=== PATIENT | male | born 1950 | race Caucasian/White ===

== ENCOUNTER 2022-08-06 00:21 | Day surgery (SDC) | payer MEDICARE, SELFPAY ==
[2022-07-28 10:41] VITALS: BMI 34.7
--- NOTE | 2022-08-05 15:58 | PM.HPGS ---
History of Present Illness History of Present Illness Consent: Risks, benefits, and alternatives have been discussed and questions answered. Patient agrees to proceed with procedure. Chief complaint: Brunner's Esophagus, hx of colon polyps Narrative: iMke Correa is a 72 year old male with a history of Brunner's esophagus due for surveillance. He continues to take Protonix daily. He also has a history of colon polyps. Review of Systems Review of Systems: All systems reviewed & are unremarkable except as noted in HPI and below PMFSH Social History Social History Smoking status: Former smoker Tobacco type: cigarettes Alcohol intake: current Alcohol use details: occasionally Substance use: never Substance use type: does not use Living arrangements: with family Spiritual care concerns: No Meds Home Medications and Allergies Home Medications Medication Instructions Recorded Confirmed Type acyclovir 400 mg tablet 40 mg PO BID 07/28/22 07/28/22 History clopidogrel 75 mg tablet 75 mg PO DAILY 07/28/22 08/06/22 History pantoprazole 40 mg tablet,delayed 40 mg PO DAILY 07/28/22 History release rosuvastatin 40 mg tablet 40 mg PO DAILY 07/28/22 07/28/22 History valsartan 160 mg tablet 16 mg PO DAILY 07/28/22 07/28/22 History Allergies Allergy/AdvReac Type Severity Reaction Status Date / Time No Known Allergies Allergy Verified 08/06/22 07:44 Exam Const: General: alert Orientation/consciousness: patient oriented x3 Resp: Auscultation: clear to auscultation bilaterally Cardio: Rhythm: regular rhythm GI: GI Palp: Yes Soft to palpation and No Tenderness to palpation present (GI) Neuro: General: patient oriented x3 Assessment and Plan Assessment and plan (1) Brunner's esophagus: Code(s): K22.70 - Brunner's esophagus without dysplasia Status: Acute Assessment and Plan: EGD with possible biopsy or dilatation or cautery. (2) Colon cancer screening: Code(s): Z12.11 - Encounter for screening for malignant neoplasm of colon Status: Acute Assessment and Plan: Colonoscopy with possible biopsy or polypectomy or cautery or injection of substances.
[2022-08-06 07:45] VITALS: BP 155/87; PULSE 72; RESP 16; TEMP 36.2; O2SAT 99
[2022-08-06] MEDS: LACTATED RINGERS 1,000 ML 150 ML IV CONT (07:55)
--- NOTE | 2022-08-06 08:12 | WPDANESEPPF ---
Anes - Initial Pre Proc Eval Procedure: Operation Date: 08/06/22 09:00 Proposed Procedures p Esophagogastroduodenoscopy & Colonoscopy - Terrell Carcamo MD Date/Time: 08/06/22 08:12 Surgeon: Terrell Carcamo MD Pre Op Diagnosis: Brunner's Esophagus, hx of colon polyps Patient Data Age: 72 Gender: M Height: 1.85 m Weight: 112.6 kg Last Vital Signs Temp 97.1 F L 08/06/22 07:45 Pulse 72 08/06/22 07:45 Resp 16 08/06/22 07:45 BP 155/87 H 08/06/22 07:45 Pulse Ox 99 08/06/22 07:45 O2 Del Method Room Air 08/06/22 07:45 Allergies Allergy/AdvReac Type Severity Reaction Status Date / Time No Known Allergies Allergy Verified 08/06/22 07:44 Home Medications Medication Instructions Recorded Confirmed Type acyclovir 400 mg tablet 40 mg PO BID 07/28/22 07/28/22 History clopidogrel 75 mg tablet 75 mg PO DAILY 07/28/22 08/06/22 History pantoprazole 40 mg tablet,delayed 40 mg PO DAILY 07/28/22 History release rosuvastatin 40 mg tablet 40 mg PO DAILY 07/28/22 07/28/22 History valsartan 160 mg tablet 16 mg PO DAILY 07/28/22 07/28/22 History Patient hx anesthesia problems: none Family hx anesthesia problems: none Results Review: All pre-operative results and documents have been reviewed as part of the pre-operative evaluation. [facility] Social History Social History Smoking status: Former smoker Tobacco type: cigarettes Alcohol intake: current Alcohol use details: occasionally Substance use: never Substance use type: does not use Living arrangements: with family Spiritual care concerns: No Anes - Eval Final PreProcedure Day of Procedure 08/06/22 08:12 Patient weight: obese Heart: regular rate and rhythm Lungs: clear to auscultation Airway: Mallampati scale class II Neurological: alert and oriented Last oral intake: >/= 8 hours ASA classification: III Emergent: no Anesthetic plan: proceed Anesthesia type and monitoring: general GIVS and standard monitoring Results Review: All pre-operative results and documents have been reviewed as part of the pre-operative evaluation. Informed Consent: The patient's anesthetic plan and its attendant risks and benefits were discussed with the patient/family/POA. Questions were solicited and answers provided to the satisfaction of the patient/family/POA.
[2022-08-06] MEDS: SIMETHICONE ORAL SUSPENSION 20 MG/0.3 ML 30 ML BOTTLE 0.6 ML IRRIGATION (08:42)
--- NOTE | 2022-08-06 08:46 | SUR.OPER ---
EGD started at 0827 and ended at 0830. Colonoscopy started at 0837 and ended at 0845.
[2022-08-06 08:52] VITALS: BP 107/56; PULSE 65; RESP 18; O2SAT 96
[2022-08-06 09:02] VITALS: BP 117/80; PULSE 62; RESP 17; O2SAT 98
[2022-08-06 09:12] VITALS: BP 130/75; PULSE 60; RESP 17; O2SAT 100
== END 2022-08-06 09:20 | disposition home or self-care (01) ==
PROVIDERS: PCP Internal Medicine; Visit Provider Internal Medicine Gastroenterology
PROC: 0DJ08ZZ Inspection of Upper Intestinal Tract, Via Natural or Artificial Opening Endoscopic (ICD-10-PCS; CPT 43235; principal; 2022-08-06 09:00)
DX: Z12.11 Encounter for screening for malignant neoplasm of colon (principal); K64.8 Other hemorrhoids; K57.30 Diverticulosis of large intestine without perforation or abscess without bleeding; Z86.010 Personal history of colon polyps; K22.70 Barrett's esophagus without dysplasia; Z79.02 Long term (current) use of antithrombotics/antiplatelets; Z87.891 Personal history of nicotine dependence; E66.9 Obesity, unspecified; Z68.32 Body mass index [BMI] 32.0-32.9, adult
CPT/HCPCS: 43239; G0105; 88305; J2704; J7120